=== PATIENT | male | born 1945 | race Caucasian/White ===

== ENCOUNTER 2019-11-23 11:00 | Outpatient (RCR) | payer MEDICARE, SELFPAY ==
--- NOTE | 2019-10-19 14:22 | PTOPEVAL ---
INITIAL PHYSICAL THERAPY EVALUATION and PLAN OF CARE Thank you for referring Flynn Durand to [facility]. He will be seen 2x/wk x 4wks. Please review, sign, date and return this plan of care CAMILA. I agree with and certify that the following plan of care is medically necessary. Referring Physician Date Admitting Provider: Attending Provider: Chris De Luna, Referring Provider: *PT Outpatient Evaluation Start: 10/19/19 13:04 Freq: Status: Active Protocol: Document 10/19/19 13:00 ALVARO (Rec: 10/19/19 14:17 ALVARO [id number]) Therapy Assessment Status Assessment Status Assessment Status Evaluation Outpatient Past Medical History Past Medical History Source of Past Medical History Patient Neurological History Hx Neurological Disorders No Significant History Cardiovascular History Hx Cardiac Catheterization Yes: stent placement ~ July 2019 Hx Hypertension Yes Respiratory History Hx Asthma Yes Gastrointestinal History Hx Gastrointestinal Disorders No Significant History Genitourinary History Hx Genitourinary Disorders No Significant History Musculoskeletal History Hx Back Pain Yes Hx Fractures Yes: compression fx L1 Hx Other Musculoskeletal Disorders Yes: R shoulder pain - off/on Endocrine History Hx Endocrine Disorders No Significant History Evaluation Information Problem Diagnosis low back pain Onset ~5 months ago Subjective Information hurts when he sleeps- sleeps Query Text:As Reported By Patient/ on back - no pillow under Family knees, sleeps 7-8 hrs/night, when gets up in the morning feels like everything is pushing up When gets up from sleeping - rolls to side and gets up. Back feels better as the day goes on. Able to sit and watch TV or movie. No difficulty with standing to do dishes, going grocery shopping. Diagnostic Tests X-Rays For This Problem Yes Prior Level of Function Medications Home Meds (Include: OTC, RX, Vitamins, has 10 medications - doesn't Herbals, Dose, Route,and Frequency) know what they are, why he Query Text:Home Med Entries Will No takes them, didn't bring a Longer Recall From Past Visits. Home list Meds Must Be Re-entered With Each Visit. Home Setting Home Type Apartment Environmental Barriers Railing, Ascend Left,Stairs, Greater than 4 Living Situation
--- NOTE | 2019-10-31 13:25 | PCPTNOTE ---
Flynn phoned at 1:20 (40 minutes after start of appt) asking if he had an appointment today. He was reminded of his next appointment time.
--- NOTE | 2019-11-05 12:59 | PCPTNOTE ---
Patient did not show up for scheduled appointment this date. His cell phone is his only listed number and a message can not be left on it.
--- NOTE | 2019-11-23 11:34 | PTOPEVAL ---
PHYSICAL THERAPY DISCHARGE SUMMARY Thank you for referring Flynn Durand to [facility]. Flynn has received 6 visits. He has met goals set and is continue with his HEP on a regular basis. I agree with Flynn's discharge from physical therapy. Referring Physician Date Admitting Provider: Attending Provider: Chris De Luna, Referring Provider: *PT Outpatient Evaluation Start: 10/19/19 13:04 Freq: Status: Active Protocol: Document 11/23/19 10:26 ALVARO (Rec: 11/23/19 11:34 ALVARO [id number]) Therapy Assessment Status Assessment Status Assessment Status Discharge Evaluation Information Problem Subjective Information Flynn states that back Query Text:As Reported By Patient/ discomfort in the mornings is Family okay. No c/o's discomfort with exercises in clinic. Pain Assessment Timing of Pain Assessment Timing of Pain Assessment Assessment Pain Scale Pain Scale Used Numeric (1 - 10) Self Report Pain Assessment Lower Back Reported Pain Level 2 Pain Description Aching Lowest Pain Intensity 0 Greatest Pain Intensity 3 Pain Score Pain Score 2: Self Report Cervical and Lumbar ROM Lumbar ROM Lumbar Flexion (0-90) 40 Query Text:Active in Degrees Lumbar Extension (0-40) 20 Query Text:Active in Degrees Lumbar Lateral Flexion Right (0-40) 10 Query Text:Active in Degrees Lumbar Lateral Flexion Left (0-40) 10 Query Text:Active in Degrees Lumbar Comments no c/o's pain with trunk AROM L pelvis remains elevated. Improved SIJ mobility Muscle Length Testing Muscle Length Testing Left Hamstring Length -26 Query Text:(90 - 90 Position) Right Hamstring Length -25 Query Text:(90 - 90 Position) Palpation Assessment Palpation Palpation tenderness present with P-A mob testing sacrum, L5-1, increase in L lumbar paraspinal muscles, tenderness present with bilat lumbar paraspinal muscles L LE appears ~ 1/2 longer than R PT Clinical Summary Clinical Summary Protocol: PTEVCODE PT Clinical Summary Modified Oswestry LBP Questionnaire - 16% Flynn has progressed well in PT. His LBP has decreased and is not having the increased back pain upon waking in a.m. He has met goals se
== END 2019-12-06 10:11 | disposition home or self-care (01) ==
LOC: ANHHIPT 11:00
PROVIDERS: PCP Internal Medicine; Visit Provider Internal Medicine
DX: M54.5 Low back pain (principal)
CPT/HCPCS: 97110; 97140; 97161